=== PATIENT | female | born 1990 | race Caucasian/White ===

== ENCOUNTER → 2023-11-30 11:19 | Outpatient (REF) | payer BC, SELFPAY | LOC: RAD 11:19 | PROVIDERS: ATTENDING PHYSICIAN Thoracic Surgery (Cardiothoracic Vascular Surgery); FAMILY PHYSICIAN Internal Medicine | DX: R07.89 Other chest pain (principal) | CPT/HCPCS: 71250 ==

== ENCOUNTER → 2024-04-23 16:32 | Outpatient (REF) | payer OTHER, SELFPAY ==
[2024-04-23 17:25] LABS: % Basophils 0.7 % (0-2); % Eosinophils 5.6 % (0-6); % Immature Granulocytes 0.3 % (0-0.5); % Lymphocytes 38.3 % (20.5-51.1); % Neutrophils 48.1 % (42.2-75.2); Absolute Basophils 0.1 10^3/uL (0-0.2); Absolute Eosinophils 0.4 10^3/uL (0-0.7); Absolute Lymphocytes 2.6 10^3/uL (1.2-3.4); Absolute Monocytes 0.5 10^3/uL (0.1-0.6); Absolute Neutrophils 3.3 10^3/uL (1.4-6.5); Hematocrit 37.8 % (37.0-47.0); Hemoglobin 12.3 g/dL (12.0-16.0); Mean Corp Hgb Conc. 32.5 g/dL (33.0-37.0); Mean Corpuscular Hgb 25.9 pg (27.0-31.0); Mean Corpuscular Volume 79.7 fL (81.0-99.0); Mean Platelet Volume 10.4 fL (7.4-10.4); Nucleated Red Blood Cells % 0 %; Platelet Count 236 10^3/uL (130-400); Red Blood Cell Count 4.74 10^6/uL (4.20-5.40); Red Cell Dist. Width 13.1 % (11.5-14.5); White Blood Cell Count 6.8 10^3/uL (4.8-10.8)
[2024-04-23 17:39] LABS: ALT (SGPT) < 10 U/L (0-35); AST (SGOT) 25 U/L (14-36); Albumin 4.8 g/dl (3.5-5.0); Alkaline Phosphatase 61 U/L (38-126); Blood Urea Nitrogen 11 mg/dl (7-17); Calcium 9.9 mg/dl (8.4-10.2); Carbon Dioxide 30 mmol/L (22-30); Chloride 101 mmol/L (98-107); Glucose 86 mg/dl (70-99); HDL Cholesterol 73 mg/dl; LDL Cholesterol, Calculated 119 mg/dl; Sodium 140 mmol/L (135-145); Total Bilirubin 0.4 mg/dl (0.2-1.3); Total Cholesterol 229 mg/dl (50-199); Total Protein 7.1 g/dl (6.3-8.2); Triglyceride 186 mg/dl (10-149); Very Low Density Lipoprotein 37 mg/dl (0-30); eGFR > 60.00
[2024-04-23 18:11] LABS: TSH 0.43 uIU/ml (0.47-4.68)
== END ==
LOC: REG 16:32
PROVIDERS: ATTENDING PHYSICIAN Internal Medicine
DX: F41.1 Generalized anxiety disorder (principal); Z90.49 Acquired absence of other specified parts of digestive tract; Z00.00 Encounter for general adult medical examination without abnormal findings
CPT/HCPCS: 36415; 80053; 80061; 84443; 85025

== ENCOUNTER → 2024-05-26 15:06 | Outpatient (REF) | payer BC, OTHER, SELFPAY ==
[2024-06-04 01:05] LABS: HPV, High Risk Not Detected; HPV, High Risk Source Cervical
== END ==
LOC: CPAP 15:06
PROVIDERS: ATTENDING PHYSICIAN Nurse Practitioner Family
DX: Z01.419 Encounter for gynecological examination (general) (routine) without abnormal findings (principal); Z11.51 Encounter for screening for human papillomavirus (HPV)
CPT/HCPCS: 87624; G0123

== ENCOUNTER → 2024-12-02 10:40 | Outpatient (REF) | payer BC, SELFPAY ==
[2024-12-03 11:56] LABS: Varicella Zoster IgG (VZV) Positive
[2024-12-04 05:58] LABS: Quantiferon Mitogen minus NIL 9.97 IU/mL; Quantiferon NIL 0.03 IU/mL; Quantiferon TB Gold Plus Negative (Negative)
== END ==
LOC: OHS 10:40
PROVIDERS: ATTENDING PHYSICIAN Nurse Practitioner; FAMILY PHYSICIAN Nurse Practitioner Family
DX: Z23 Encounter for immunization (principal)
CPT/HCPCS: 36415; 86480; 86787

== ENCOUNTER 2025-08-06 16:44 | Emergency (ER) | payer BC, SELFPAY ==
[2025-08-06 16:50] VITALS: BP 100/71
[2025-08-06 17:23] LABS: Hematocrit 43.0 % (37.0-47.0); Hemoglobin 14.0 g/dL (12.0-16.0); Mean Corp Hgb Conc. 32.6 g/dL (33.0-37.0); Mean Corpuscular Volume 80.1 fL (81.0-99.0); Nucleated Red Blood Cells % 0 %; Platelet Count 206 10^3/uL (130-400); Red Cell Dist. Width 13.6 % (11.5-14.5)
--- NOTE | 2025-08-06 17:27 | ED.GENMED ---
History of Present Illness
General
Chief Complaint: Abdominal Pain
Source: patient
Exam Limitations: none
Time Seen by Provider: 08/06/25 17:23
Nursing documentation reviewed up to this point in time: agreed with
History of Present Illness
History of Present Illness:
34 yo female with no clinically significant past medical history presents for sudden onset of nausea, vomiting, chills, general body aches at 8:00 this morning. Her 14-year-old daughter is home with similar symptoms. Patient states she has vomited
at least 20 times in the past few hours. Last emesis was about 1/2-hour ago. She denies diarrhea or constipation. Denies chest pain or trouble breathing or abdominal pain denies urinary symptoms.
She took Zofran 4 mg sublingual prior to arrival and states it did not help..
Past History
Past History
ED Past Medical History: Psychiatric (Anxiety) and Other ( Anemia)
ED Past Surgical History: Appendectomy, Bowel resection (Small bowel resection with lysis of adhesions June 24 2013), (X2) and Tonsilectomy
Social History
Tobacco: Non-smoker
Alcohol: None
Drug: None
Personal: Single
Living: with family
Employment: Employed
Family History
Family History: Other (All female members of her family have panic attacks. )
Review of Systems
Review of Systems
Allergies reviewed?: Yes
All Other Systems: ROS reviewed and negative except as documented in HPI and ROS
Phy Exam
Physical Exam
Physical Exam:
GENERAL: Mild distress due to vomiting/nausea. A&Ox3.
CONSTITUTIONAL: Afebrile.
EYES: clear, conjunctivae normal
ENMT: moist mucus membranes, Pharynx nl
RESPIRATORY: Regular respirations, nonlabored, lungs clear.
CARDIOVASCULAR: Regular rate and rhythm, no murmurs, no rubs.
GI: Soft, nontender, normal BS
MUSCULOSKELETAL: Moves with ease. Well perfused.
SKIN: Warm, dry, pink
PSYCH: Anxious mood and affect. Well kept, interactive.
NEUROLOGIC: Awake, alert and oriented. No focal neurological deficits
Course
Orders/Labs/Results
Orders:
Orders
08/06/25 16:56
Test Result ONCE
08/06/25 17:05
Complete Blood Count/With Diff Urgent
Comprehensive Metabolic Panel Urgent
HCG, Serum Qualitative Screen Urgent
Comment: Notify provider if positive test present
Lipase Urgent
INF RAPID [Influenza A+B Rapid Molecular] Urgent
GONZALES Source: Nasal Swab
Specimen Description:
08/06/25 17:24
Diphenhydramine [Benadryl] 50 mg IV NOW STA
Prochlorperazine [Compazine] 10 mg IV NOW STA
08/06/25 17:27
0.9% Sodium Chloride 1000 ml [Nss] 1,000 ml IV BOLUS
08/06/25 17:29
Ketorolac [Toradol] 15 mg IV NOW STA
08/06/25 17:53
COVID-19 Antigen Urgent
Source: Nasal Swab
Abnormal Lab Results
08/06/25
17:05
WBC 11.4 H 10^3/uL
(4.8-10.8)
MCV 80.1 L fL
(81.0-99.0)
MCH 26.1 L pg
(27.0-31.0)
MCHC 32.6 L g/dL
(33.0-37.0)
MPV 11.0 H fL
(7.4-10.4)
Absolute Neuts (auto) 10.4 H 10^3/uL
(1.4-6.5)
Absolute Lymphs (auto) 0.4 L 10^3/uL
(1.2-3.4)
Neutrophils % 90.6 H %
(42.2-75.2)
Lymphocytes % 3.1 L %
(20.5-51.1)
08/06/25 17:05
08/06/25 17:05
Vital Signs
Initial and Last Documented VS:
Initial Vital Signs
Temp BP
99.2 F 100/71
08/06/25 16:50 08/06/25 16:50
Last Documented Vital Signs
Temp Pulse Resp BP Pulse Ox
99.4 F 120 16 107/64 98
08/06/25 18:17 08/06/25 18:11 08/06/25 18:11 08/06/25 18:11 08/06/25 18:11
MDM/Problems Addressed
Differential Diagnosis Includes:
Gastritis, COVID, flu, dehydration
MDM/Problems Addressed:
34 yo female with no clinically significant past medical history presents for sudden onset of nausea, vomiting, chills, general body aches at 8:00 this morning. Her 14-year-old daughter is home with similar symptoms. Patient states she has vomited
at least 20 times in the past few hours. Last emesis was about 1/2-hour ago. She denies diarrhea or constipation. Denies chest pain or trouble breathing or abdominal pain denies urinary symptoms.
She took Zofran 4 mg sublingual prior to arrival and states it did not help..
CBC with no clinically significant abnormality
CMP normal
HCG negative
6:00 p.m.
Case discussed with Wilbert SAHU who will assume care from this point.
*Pulse Oximetry
Oxygen Mode of Delivery: Room air
Patient hypoxic: no
*Critical Care Note
Total Time (30-74mins, 75-104mins- exclusive of procedures): Not Applicable
ED Attending Note
-
Portions of this chart may have been created with voice recognition software.� Occasional wrong word or��sound alike� substitutions may have occurred due to the inherent limitations of voice recognition software.
Discharge Plan
Departure
Prescriptions:
No Action
vljkese-idivyvjvq-etaw 1 EACH tablet
1 ea PO DAILY
ferrous sulfate [FeroSul] 325 MG tablet
325 mg PO DAILY
escitalopram oxalate 10 MG tablet
10 mg PO ONCE
multivitamin with folic acid [Tab-A-Kathy] 1 TABLET tablet
1 tab PO DAILY
Interventions
Interventions:
*Risk Screen - Suicide (C-SSRS) Last Done: 08/06/25 16:45
Discharge Date and Time
Print Language: WELSH
--- NOTE | 2025-08-06 17:30 | EDRN ---
Shane BERNSTEIN in room w/ pt
[2025-08-06 17:43] LABS: HCG, Serum Qualitative Screen Negative
[2025-08-06 17:47] LABS: ALT (SGPT) 13 U/L (0-35); AST (SGOT) 29 U/L (14-36); Albumin 4.9 g/dl (3.5-5.0); Alkaline Phosphatase 60 U/L (38-126); Blood Urea Nitrogen 12 mg/dl (7-17); Calcium 9.3 mg/dl (8.4-10.2); Carbon Dioxide 24 mmol/L (22-30); Chloride 101 mmol/L (98-107); Glucose 95 mg/dl (70-99); Lipase 138 U/L (23-300); Potassium 3.9 mmol/L (3.5-5.1); Sodium 135 mmol/L (135-145); Total Protein 7.6 g/dl (6.3-8.2); eGFR > 60.00
[2025-08-06] MEDS: NSS 1000 IV (18:00)
[2025-08-06] MEDS: TORADOL 15 MG IV (18:02)
[2025-08-06] MEDS: BENADRYL 50 MG IV (18:03)
[2025-08-06] MEDS: COMPAZINE 10 MG IV (18:05)
--- NOTE | 2025-08-06 18:05 | EDRN ---
Pt states that she arrives for N/V that she awoke w/ this am. Pt states that it stopped on arrival to ED. Pt adds she felt something coming on last night. Pt states she has bodyaches and still has nausea.
[2025-08-06 18:11] VITALS: BP 107/64
[2025-08-06 18:13] VITALS: BMI 24.1
[2025-08-06 18:33] LABS: COVID-19 Antigen Negative (Negative)
[2025-08-06 19:30] VITALS: BP 99/60
--- NOTE | 2025-08-06 19:46 | ED.GENMED ---
History of Present Illness
General
Chief Complaint: Abdominal Pain
Time Seen by Provider: 08/06/25 17:23
Past History
Past History
ED Past Medical History: Psychiatric (Anxiety) and Other ( Anemia)
ED Past Surgical History: Appendectomy, Bowel resection (Small bowel resection with lysis of adhesions June 24 2013), (X2) and Tonsilectomy
Social History
Tobacco: Non-smoker
Alcohol: None
Drug: None
Personal: Single
Living: with family
Employment: Employed
Family History
Family History: Other (All female members of her family have panic attacks. )
Course
Orders/Labs/Results
Orders:
Orders
08/06/25 16:56
Test Result ONCE
08/06/25 17:05
Complete Blood Count/With Diff Urgent
Comprehensive Metabolic Panel Urgent
HCG, Serum Qualitative Screen Urgent
Comment: Notify provider if positive test present
Lipase Urgent
INF RAPID [Influenza A+B Rapid Molecular] Urgent
GONZALES Source: Nasal Swab
Specimen Description:
08/06/25 17:24
Diphenhydramine [Benadryl] 50 mg IV NOW STA
Prochlorperazine [Compazine] 10 mg IV NOW STA
08/06/25 17:27
0.9% Sodium Chloride 1000 ml [Nss] 1,000 ml IV BOLUS
08/06/25 17:29
Ketorolac [Toradol] 15 mg IV NOW STA
08/06/25 17:53
COVID-19 Antigen Urgent
Source: Nasal Swab
Abnormal Lab Results
08/06/25
17:05
WBC 11.4 H 10^3/uL
(4.8-10.8)
MCV 80.1 L fL
(81.0-99.0)
MCH 26.1 L pg
(27.0-31.0)
MCHC 32.6 L g/dL
(33.0-37.0)
MPV 11.0 H fL
(7.4-10.4)
Absolute Neuts (auto) 10.4 H 10^3/uL
(1.4-6.5)
Absolute Lymphs (auto) 0.4 L 10^3/uL
(1.2-3.4)
Neutrophils % 90.6 H %
(42.2-75.2)
Lymphocytes % 3.1 L %
(20.5-51.1)
08/06/25 17:05
08/06/25 17:05
Vital Signs
Initial and Last Documented VS:
Initial Vital Signs
Temp BP
99.2 F 100/71
08/06/25 16:50 08/06/25 16:50
Last Documented Vital Signs
Temp Pulse Resp BP Pulse Ox
99.4 F 85 18 99/60 98
08/06/25 18:17 08/06/25 19:30 08/06/25 19:30 08/06/25 19:30 08/06/25 19:47
*Pulse Oximetry
SaO2: 98
Oxygen Mode of Delivery: Room air
Patient Management
Escalation/DeEscalation of care consider admission/obs:
Patient received in signout pending reevaluation
Patient notes feeling much improved following IV fluids. She feels comfortable being discharged home. Brat diet recommended. Patient aware of return precautions to the ER.
ED Attending Note
-
Portions of this chart may have been created with voice recognition software.� Occasional wrong word or��sound alike� substitutions may have occurred due to the inherent limitations of voice recognition software.
Discharge Plan
Departure
Patient Disposition: Home (Routine Discharge)
Date of Disposition: 08/06/25
Time of Disposition: 19:46
Patient with high blood pressure during this ER visit?: No
Discharge Problem:
Nausea and vomiting
Instructions: Nausea and Vomiting, Adult (DC)
Prescriptions:
No Action
exfmxya-jmfsprgme-imls 1 EACH tablet
1 ea PO DAILY
ferrous sulfate [FeroSul] 325 MG tablet
325 mg PO DAILY
escitalopram oxalate 10 MG tablet
10 mg PO ONCE
multivitamin with folic acid [Tab-A-Kathy] 1 TABLET tablet
1 tab PO DAILY
Stand Alone Forms: Return to Work
Interventions
Interventions:
*General Assessment Last Done: 08/06/25 18:05
*Neglect/Abuse Screening Last Done: 08/06/25 18:05
*ED COVID-19 Vaccine History Last Done: 08/06/25 18:05
*ED Influenza Vaccine History Last Done: 08/06/25 18:05
[facility] Fall Risk Assessment Tool Last Done: 08/06/25 18:05
*Risk Screen - Suicide (C-SSRS) Last Done: 08/06/25 18:05
*Nursing Disposition Last Done: 08/06/25 20:00
ME-Vyftvx-Prikckbrhj Assessment Last Done: 08/06/25 18:05
Discharge Date and Time
Discharge Date/Time: 08/06/25 20:00
Print Language: OCCITAN
== END 2025-08-06 20:00 | disposition home or self-care (01) ==
LOC: EMR 16:44
PROVIDERS: Emergency Medicine; Registered Nurse; EMERGENCY PHYSICIAN Student in an Organized Health Care Education/Training Program; FAMILY PHYSICIAN Surgery
DX: R11.2 Nausea with vomiting, unspecified (principal); R68.83 Chills (without fever); M79.10 Myalgia, unspecified site; Z11.52 Encounter for screening for COVID-19
CPT/HCPCS: 96374; 96375; 96361; 99284; 80053; 83690; 84703; 85025; 87502; 87811